=== PATIENT | female | born 1995 | race Caucasian/White ===

== ENCOUNTER 2024-07-24 12:58 | Outpatient (OUT) | payer BC, SELFPAY ==
--- NOTE | 2024-07-24 13:01 | US_ITS ---
[address] [address] Patient Name: CASTILLO SOW MRN: [id number] date: 1995 Sex: F Assigned Patient Location: Current Patient Location: Accession/Order Number: [id number] Exam Date: 07/24/2024 13:04 Report Date: 07/25/2024 01:59 At the request of: SHANNON STEWARD Procedure: US pelvis EXAMINATION: US pelvis HISTORY: MENORRHAGIA N92.0 COMPARISON: No relevant comparison available. TECHNIQUE: Transabdominal and/or transvaginal sonographic examination was performed as indicated by examination type. FINDINGS: UTERUS: Normal size and appearance. Uterus size: 7.1 x 3.4 x 4.7 cm ENDOMETRIUM: Normal homogeneous appearance. Endometrial thickness: 3 mm RIGHT OVARY: Normal size and appearance. Duplex Doppler demonstrates normal waveform and flow; resistive index 0.4. Ovary size: 2.6 1.4 x 1.6 cm LEFT OVARY: Contains a 2.9 cm benign-appearing cyst. Duplex Doppler demonstrates normal waveform and flow; resistive index 0.4. Ovary size: 4.9 x 2.9 x 3.1 cm CUL-DE-SAC: Unremarkable. No significant free fluid. BLADDER: Unremarkable. OTHER: None. US/US pelvis IMPRESSION: 1. No acute or suspicious findings to account for patient's symptoms. Electronically authenticated by: DARA MORENO Date: 07/25/2024 01:59
== END 2024-07-24 12:59 | disposition home or self-care (01) ==
LOC: US 12:58
PROVIDERS: PCP Nurse Practitioner; Visit Provider Nurse Practitioner
DX: N92.0 Excessive and frequent menstruation with regular cycle (principal); N83.292 Other ovarian cyst, left side
CPT/HCPCS: 76856